=== PATIENT | female | born 1990 ===

== ENCOUNTER 2020-11-04 08:47 | Emergency (ER) | payer SELFPAY ==
[2020-11-04 08:56] VITALS: BP 133/94; PULSE 89; RESP 14; TEMP 36.1; O2SAT 98
--- NOTE | 2020-11-04 09:13 | ED.FEMALEGU ---
HPI - Female Genitourinary General Chief complaint: Urogenital-Female Stated complaint: POS UTI Time Seen by Provider: 11/04/20 09:13 Source: patient Mode of arrival: ambulatory Limitations: physical limitation History of Present Illness HPI Narrative: Jelly Forbes is a 30 yo female with a PMH of renal stones, UTI, who comes to [facility] with 2 weeks of symptoms of dysuria frequency and lower back pain. She rates her pain as 10 out of 10 currently. She has no fever no nausea vomiting; patient states that the pain is constant, bilateral lumbar pain Related Data Home Medications Medication Instructions Recorded Confirmed cholecalciferol (vitamin D3) 50 mcg PO DAILY 11/04/20 11/04/20 [Vitamin D3] vitamin B complex [B 1 tablet PO DAILY 11/04/20 11/04/20 Complex-Vitamin B12] Allergies Allergy/AdvReac Type Severity Reaction Status Date / Time No Known Allergies Allergy Verified 11/04/20 09:10 Review of Systems Review of Systems: Narrative: CONSTITUTIONAL: Denies fever, chills, sweats. EYES: Denies visual changes, redness, discharge. ENT: Denies rhinorrhea, congestion, sore throat, otalgia. CARDIOVASCULAR: Denies chest pain, palpitations, edema. RESPIRATORY: Denies dyspnea, wheezing, cough GASTROINTESTINAL: Denies abdominal pain, nausea, vomiting, diarrhea. GENITOURINARY: Has dysuria, hematuria, abnormal discharge SKIN: Denies rash or itching. NEUROLOGIC: Denies numbness, or focal weakness. PSYCHIATRIC: Denies anxiety or depression. [facility] [place] Past Medical History Medical History (Updated 11/04/20 @ 09:31 by Susanne Leger CNP) Renal stones UTI (urinary tract infection) Surgical History Surgical History H/O tubal ligation History of cholecystectomy Family History Family History Mother Hypertension Social History Social History (Updated 11/04/20 @ 09:24 by Susanne Leger CNP) Smoking packs per day: 6 Smoking cigarettes per day: 120.0 Smoking status: Current every day smoker Tobacco type: cigarettes Additional smoking assessment comments: Restarted smoking 6 months ago after quitting for 5 years Substance use: current Comments At time of signature, I agree with nursing past medical, surgical, social and family history. There is no relevant family history pertinent to the presenting complaint. Blood pressure is elevated today due to pain and was referred to primary care Exam Narrative: Exam Narrative: GENERAL: This is a well-nourished, well-developed patient, in moderate distress. Rates pain is constant 10 out of 10(but not like kidney stone pain) HEAD: normocephalic, atraumatic. EYES: Sclera clear/white. Vision is grossly intact. EARS: External ears normal, Hearing grossly intact. NOSE: External nose normal without nasal discharge, nares without redness, no rhinorrhea. THROAT: Mucous membranes moist, NECK: Neck supple, CARDIOVASCULAR: Regular rate and rhythm without murmurs, gallops, or rubs. RESPIRATORY: Clear to auscultation. Breath sounds equal bilaterally. No wheezes, rales, or rhonchi. GASTROINTESTINAL: Abdomen soft, non-tender, deep lumbar pain, bilateral SKIN: warm, intact with no suspicious lesions or rash, good texture and turgor. NEURO: awake, alert, and oriented to person, place and time. There were no obvious focal neurologic abnormalities. Steady gait EXTREMITIES: Normal range of motion. BACK: Nontender without deformity Course Course Emergency Course: Patient comes with bilateral lumbar pain and dysuria x2 weeks is getting worse and pain is getting worse UA shows only trace blood and is negative for leukocytes and nitrates Discussed with patient that we will give her Keflex for treatment of dysuria but if pain continues or worsens she should go to the ER for a CT renal with her history of kidney stones Vital Signs Vital signs: Vital Signs T
[2020-11-04] MEDS: KETOROLAC (*BKC) 60 MG/2 ML VIAL IM (09:37)
== END 2020-11-04 09:43 | disposition home or self-care (01) ==
PROVIDERS: Emergency Provider Nurse Practitioner
DX: R30.0 Dysuria (principal); Z87.440 Personal history of urinary (tract) infections; Z87.442 Personal history of urinary calculi; F17.210 Nicotine dependence, cigarettes, uncomplicated
CPT/HCPCS: 81003; 96372; 99213; G0463; J1885